=== PATIENT | male | born 1940 | race Caucasian/White ===

== ENCOUNTER 2020-04-28 18:15 | Inpatient (IN) | payer OTHER, SELFPAY ==
[~2020-04-28] VITALS: Ht 172.7 cm; Wt 70.0 kg
[2020-04-28 18:29] VITALS: Ht 172.7 cm; Wt 70.0 kg
[2020-04-28 20:09] LABS: BASOPHIL % 0.6 % (0.2-1.5)
[2020-04-28 20:11] LABS: PLATELET COUNT 117 x10^3mcL (152-348)
[2020-04-28 20:19] LABS: rbc morphology (normal/abnorm) NORMAL (NORMAL)
[2020-04-28 20:23] LABS: CALCIUM 7.7 mg/dL (8.5-10.1); CARBON DIOXIDE 28.4 mmol/L (21-32); CHLORIDE SERUM 101 mmol/L (98-107); CREATININE SERUM 1.2 mg/dL (0.7-1.3); GLUCOSE SERUM 118 mg/dL (74-106); POTASSIUM SERUM 4.5 mmol/L (3.5-5.1); SODIUM SERUM 136 mmol/L (136-145)
[2020-04-28 20:27] LABS: ALKALINE PHOSPHATASE 107 U/L (46-116); ALT/SGPT 69 U/L (16-63); AST/SGOT 90 U/L (15-37); BILIRUBIN TOTAL 0.5 mg/dL (0.20-1.00)
[2020-04-28 20:29] LABS: ALBUMIN 2.5 g/dL (3.4-5.0); TOTAL PROTEIN, SERUM 5.6 g/dL (6.4-8.2)
[2020-04-29 00:53] LABS: T3 TOTAL 0.68 ng/mL
[2020-04-29 00:57] LABS: MAGNESIUM 1.8 mg/dL (1.8-2.4); PHOSPHOROUS 2.8 mg/dL (2.5-4.9)
[2020-04-29 01:01] LABS: CHOLESTEROL/HDL RATIO 1.7
[2020-04-29 01:08] LABS: FREE T4 0.85 ng/dL (0.76-1.46); T4(THYROXINE) 5.1 ug/dL (4.7-13.3)
[2020-04-29 12:13] LABS: microscopic required? NO
[2020-04-29 12:27] LABS: urine erythrocyte NEGATIVE (NEGATIVE)
[2020-04-29 12:59] LABS: AMPHETAMINE QUAL UR NONE DETECTED (See below)
[2020-04-29] MEDS ORDERED: CARVEDILOL ER40 MG (21:28)
[2020-04-29] MEDS ORDERED: SIMVASTATIN5 M2 (21:28)
[2020-04-30 01:22] VITALS: BP 147/75
[2020-04-30 05:57] VITALS: BP 144/68
[2020-04-30 08:45] VITALS: BP 142/67
[2020-04-30 12:58] VITALS: BP 147/64
[2020-04-30 17:10] VITALS: BP 151/92
[2020-04-30 20:58] VITALS: BP 139/88
[2020-05-01 05:28] VITALS: BP 120/72
[2020-05-01 09:06] VITALS: BP 134/87
[2020-05-01 12:19] VITALS: BP 155/72
[2020-05-01 16:15] VITALS: BP 125/66
[2020-05-01 20:47] VITALS: BP 133/70
[2020-05-02 05:29] VITALS: BP 150/76
[2020-05-02] MEDS ORDERED: COR3 PO (08:36)
[2020-05-02] MEDS ORDERED: VENTOLIN H0.09 MG/A1 INH (08:36)
[2020-05-02] MEDS ORDERED: ATORVASTATIN CA40 M1 PO (08:36)
[2020-05-02] MEDS ORDERED: MUCINEX600 MG PO (08:37)
[2020-05-02] MEDS ORDERED: ECO81 PO (08:37)
[2020-05-02 08:38] VITALS: BP 104/71
[2020-05-02] MEDS ORDERED: DECADRON6 MG PO (08:38)
[2020-05-02] MEDS ORDERED: LASIX20 MG PO (08:39)
[2020-05-02] MEDS ORDERED: ELIQUIS2.5 MG PO (08:54)
[2020-05-02] MEDS ORDERED: VITAMIN D-40400 UNIT PO (08:54)
[2020-05-02] MEDS ORDERED: VITC PO (08:54)
[2020-05-02] MEDS ORDERED: ZINC SULFATE220 M2 PO (08:55)
[2020-05-02 11:03] LABS: BASOPHIL % 0.1 % (0.2-1.5); PLATELET COUNT 196 x10^3mcL (152-348)
[2020-05-02 11:37] LABS: CARBON DIOXIDE 32.4 mmol/L (21-32); CHLORIDE SERUM 103 mmol/L (98-107); GLUCOSE SERUM 99 mg/dL (74-106); POTASSIUM SERUM 3.8 mmol/L (3.5-5.1); SODIUM SERUM 142 mmol/L (136-145)
[2020-05-02 11:39] LABS: C REACTIVE PROTEIN 15.7 mg/dL (<=0.9)
[2020-05-02 12:02] LABS: RED CELL DISTRIBUTION WIDTH 14.9 % (12.1-16.2)
[2020-05-02 12:13] LABS: rbc morphology (normal/abnorm) NORMAL (NORMAL)
[2020-05-02 12:20] VITALS: BP 116/80
[2020-05-02 16:06] VITALS: BP 116/80
== END 2020-05-02 17:20 | disposition home or self-care (01) | DRG 177 ==
LOC: ED 18:15 → DU 23:05
PROVIDERS: Emergency Medicine; Family Medicine; ADMIT Internal Medicine; ATTEND Internal Medicine
DX: U07.1 COVID-19 (principal); G93.41 Metabolic encephalopathy; I21.A1 Myocardial infarction type 2; E43 Unspecified severe protein-calorie malnutrition; J12.89 Other viral pneumonia; I50.23 Acute on chronic systolic (congestive) heart failure; J96.20 Acute and chronic respiratory failure, unspecified whether with hypoxia or hypercapnia; I11.0 Hypertensive heart disease with heart failure; E78.5 Hyperlipidemia, unspecified; D53.9 Nutritional anemia, unspecified; E83.51 Hypocalcemia; R74.01 Elevation of levels of liver transaminase levels; I25.10 Atherosclerotic heart disease of native coronary artery without angina pectoris; I25.5 Ischemic cardiomyopathy; I44.7 Left bundle-branch block, unspecified; Z95.1 Presence of aortocoronary bypass graft; Z95.810 Presence of automatic (implantable) cardiac defibrillator; Z68.24 Body mass index [BMI] 24.0-24.9, adult; Z90.49 Acquired absence of other specified parts of digestive tract; Z79.899 Other long term (current) drug therapy
CPT/HCPCS: 36600; 82962; 83880; 84439; 85378; G0378; G0480; J1100; J1650; J1940; J2543; J3535; J7030; U0003